=== PATIENT | female | born 1970 | race Two or more races ===

== ENCOUNTER 2018-04-28 13:27 | Emergency (ER) | payer BC ==
[2018-04-28] MEDS ORDERED: MECLIZINE 25 MG TAB PO STA (14:25)
[2018-04-28] MEDS ORDERED: DIAZEPAM 5 MG/ML 2 ML INJ IVP STA (14:25)
--- NOTE | 2018-04-28 14:28 | ED ---
General Adult HPI - General Chief complaint: Recheck/Abnormal Lab/Rx Stated complaint: High BP Time Seen by Provider: 04/28/18 13:50 Source: patient, RN notes reviewed Mode of arrival: wheelchair Limitations: no limitations - History of Present Illness Initial comments: This is a 47-year-old female who presents emergency Department complaining that her head doesn't feel right today. Patient states she does have a history of vertigo and high blood pressure. patient also has a history of Crohn's. Patient states when she woke up with a pretty significant headache which lasted about 15 minutes to 30 minutes. Patient states she was very hot at that time. Patient states she had a doctor's appointment so she decided to go to that. Patient states when she left the doctor's appointment she felt like everything was moving slowly around her and she didn't feel comfortable driving so she went home and took her blood pressure at which point time it was 180 something over 102. Patient states it kind of feels like her vertigo except that it's more constant and even when she is not moving. Patient denies any headache at this point. Patient denies any chest pain today patient denies any palpitations. Patient denies shortness of breath or difficulty breathing. Patient denies any recent fever chills or cough. Patient denies any numbness or weakness. Patient states she feels a little bit off balance but has not fallen. - Related Data Home Medications Medication Instructions Recorded Confirmed Brimonidine Tartrate [Alphagan P 1 drops BOTH EYES DAILY 06/02/16 04/28/18 0.2% Ophth Soln] Cetirizine HCl [Zyrtec] 10 mg PO DAILY 06/02/16 04/28/18 Cranberry Fruit Extract [Cranberry] 500 mg PO DAILY 06/02/16 04/28/18 Hydrochlorothiazide 12.5 mg PO DAILY 06/02/16 04/28/18 Losartan [Cozaar] 50 mg PO BID 06/02/16 04/28/18 Mesalamine [Lialda] 2.4 gm PO DAILY 06/02/16 04/28/18 Omeprazole 20 mg PO DAILY 06/02/16 04/28/18 Sodium Chloride 5% Ophth Soln 1 drops BOTH EYES BID 06/02/16 04/28/18 [Link 128] Albuterol Inhaler [Ventolin Hfa 2 puff INHALATION RT-Q6H PRN 04/28/18 04/28/18 Inhaler] Docusate [Colace] 200 mg PO HS 04/28/18 04/28/18 Multivitamins, Thera [Multivitamin 1 tab PO DAILY 04/28/18 04/28/18 (formulary)] [place]-3 Fatty Acids/Fish Oil [Fish 1 cap PO DAILY 04/28/18 04/28/18 Oil 1,000 mg Softgel] Polyethylene Glycol 3350 [Miralax] 5 ml PO DAILY 04/28/18 04/28/18 Saccharomyces Cerevisiae [Smith's 2,000 mg PO DAILY 04/28/18 04/28/18 Yeast] Turmeric Root Extract [Turmeric] 1,000 mg PO DAILY 04/28/18 04/28/18 Venlafaxine HCl [Effexor XR] 150 mg PO DAILY 04/28/18 04/28/18 Allergies Allergy/AdvReac Type Severity Reaction Status Date / Time Iodinated Contrast- Oral and Allergy Swelling Verified 04/28/18 14:37 IV Dye [Iodinated Contrast Media - IV Dye] Sulfa (Sulfonamide AdvReac Unknown Verified 04/28/18 14:37 Antibiotics) Review of Systems ROS Statement: Those systems with pertinent positive or pertinent negative responses have been documented in the HPI. ROS Other: All systems not noted in ROS Statement are negative. Past Medical History Past Medical History: Asthma, Eye Disorder, Hypertension, Osteoarthritis (OA), Skin Disorder Additional Past Medical History / Comment(s): Hx Fuch's Dystrophy, eczema, Chron's, borderline hyperlipidema History of Any Multi-Drug Resistant Organisms: None Reported Past Surgical History: Appendectomy, Bowel Resection, Hysterectomy Additional Past Surgical History / Comment(s): Fatty tumors removed from right arm, right leg,gland removed from neck, colonoscopy, EGD. Past Anesthesia/Blood Transfusion Reactions: Motion Sickness Past Psychological History: No Psychological Hx Reported Smoking Status: Former smoker Past Alcohol Use History: Occasional Past Drug Use History: None Reported - Past Family History Mother Family Medical History: Blood Disorder Brother(s) Family Medical History: Blood Disorder General Exam - General Exam Comments Initial Comments: GENERAL: Patient is well-developed and well-nourished. Patient is nontoxic and well- hydrated and is in mild distress . ENT: Neck is soft and supple. No significant lymphadenopathy is noted. Oropharynx is clear. Moist mucous membranes. Neck has full range of motion without eliciting any pain. EYES: The sclera were anicteric and conjunctiva were pink and moist. Extraocular movements were intact and pupils were equal round and reactive to light. Eyelids were unremarkable. PULMONARY: Unlabored respirations. Good breath sounds bilaterally. No audible rales rhonchi or wheezing was noted. CARDIOVASCULAR: There is a regular rate and rhythm without any murmurs gallops or rubs. ABDOMEN: Soft and nontender with normal bowel sounds. No palpable organomegaly was noted. There is no palpable pulsatile mass. SKIN: Skin is clear with no lesions or rashes and otherwise unremarkable. NEUROLOGIC: Patient is alert and oriented x3. Cranial nerves II through XII are grossly intact. Motor and sensory are also intact. Normal speech, volume and content. Symmetrical smile. MUSCULOSKELETAL: Normal extremities with adequate strength and full range of motion. No lower extremity swelling or edema. No calf tenderness. LYMPHATICS: No significant lymphadenopathy is noted PSYCHIATRIC: Normal psychiatric evaluation. Normal interpersonal interactions appears functionally intact in deals appropriately with others. No signs of depression. No signs of anxiety. Limitations: no limitations Course Vital Signs 04/28/18 04/28/18 04/28/18 13:46 15:00 15:54 Temperature 98.8 F Pulse Rate 74 71 71 Respiratory 18 18 18 Rate Blood Pressure 175/98 182/99 168/86 O2 Sat by Pulse 99 96 98 Oximetry 04/28/18 04/28/18 04/28/18 16:09 16:45 17:15 Temperature Pulse Rate 73 75 76 Respiratory 20 18 20 Rate Blood Pressure 168/96 167/85 161/79 O2 Sat by Pulse 99 99 Oximetry Medical Decision Making - Medical Decision Making EKG shows normal sinus rhythm at 67 bpm CO interval is 162 QRS is 90 QT interval 418 QTC is 441. Patient's EKG shows no ST segment elevation or depression or T wave abnormalities are noted CT of brain showed no acute abnormality. Chest x-ray showed no acute abnormality Patient had Valium and Antivert and felt considerably better after that. Patient also received hydralazine 2 for the blood pressure. - Lab Data Result diagrams: 04/28/18 14:50 04/28/18 14:50 Lab Results 10/11/1004/28/18 04/28/18 Range/Units 14:50 14:50 14:50 WBC 9.3 (3.8-10.6) k/uL RBC 5.07 (3.80-5.40) m/uL Hgb 15.0 (11.4-16.0) gm/dL Hct 45.7 (34.0-46.0) % MCV 90.3 (80.0-100.0) fL MCH 29.5 (25.0-35.0) pg MCHC 32.7 (31.0-37.0) g/dL RDW 13.8 (11.5-15.5) % Plt Count 289 (150-450) k/uL Neutrophils % 76 % Lymphocytes % 17 % Monocytes % 4 % Eosinophils % 2 % Basophils % 0 % Neutrophils # 7.1 (1.3-7.7) k/uL Lymphocytes # 1.6 (1.0-4.8) k/uL Monocytes # 0.4 (0-1.0) k/uL Eosinophils # 0.2 (0-0.7) k/uL Basophils # 0.0 (0-0.2) k/uL PT (9.0-12.0) sec INR (<1.2) APTT (22.0-30.0) sec Sodium 140 (137-145) mmol/L Potassium 4.6 (3.5-5.1) mmol/L Chloride 106 (98-107) mmol/L Carbon Dioxide 23 (22-30) mmol/L Anion Gap 11 mmol/L BUN 15 (7-17) mg/dL Creatinine 0.84 (0.52-1.04) mg/dL Est GFR (CKD-EPI)AfAm >90 (>60 ml/min/1.73 sqM) Est GFR (CKD-EPI)NonAf 83 (>60 ml/min/1.73 sqM) Glucose 96 (74-99) mg/dL Calcium 9.9 (8.4-10.2) mg/dL Magnesium 2.1 (1.6-2.3) mg/dL Total Bilirubin 0.7 (0.2-1.3) mg/dL AST 57 H (14-36) U/L ALT 34 (9-52) U/L Alkaline Phosphatase 75 (38-126) U/L Total Creatine Kinase 328 H (30-135) U/L CK-MB (CK-2) 1.8 (0.0-2.4) ng/mL CK-MB (CK-2) Rel Index 0.5 Troponin I <0.012 (0.000-0.034) ng/mL Total Protein 8.3 H (6.3-8.2) g/dL Albumin 4.6 (3.5-5.0) g/dL 04/28/18 Range/Units 14:50 WBC (3.8-10.6) k/uL RBC (3.80-5.40) m/uL Hgb (11.4-16.0) gm/dL Hct (34.0-46.0) % MCV (80.0-100.0) fL MCH (25.0-35.0) pg MCHC (31.0-37.0) g/dL RDW (11.5-15.5) % Plt Count (150-450) k/uL Neutrophils % % Lymphocytes % % Monocytes % % Eosinophils % % Basophils % % Neutrophils # (1.3-7.7) k/uL Lymphocytes # (1.0-4.8) k/uL Monocytes # (0-1.0) k/uL Eosinophils # (0-0.7) k/uL Basophils # (0-0.2) k/uL PT 10.1 (9.0-12.0) sec INR 1.0 (<1.2) APTT 25.0 (22.0-30.0) sec Sodium (137-145) mmol/L Potassium (3.5-5.1) mmol/L Chloride (98-107) mmol/L Carbon Dioxide (22-30) mmol/L Anion Gap mmol/L BUN (7-17) mg/dL Creatinine (0.52-1.04) mg/dL Est GFR (CKD-EPI)AfAm (>60 ml/min/1.73 sqM) Est GFR (CKD-EPI)NonAf (>60 ml/min/1.73 sqM) Glucose (74-99) mg/dL Calcium (8.4-10.2) mg/dL Magnesium (1.6-2.3) mg/dL Total Bilirubin (0.2-1.3) mg/dL AST (14-36) U/L ALT (9-52) U/L Alkaline Phosphatase (38-126) U/L Total Creatine Kinase (30-135) U/L CK-MB (CK-2) (0.0-2.4) ng/mL CK-MB (CK-2) Rel Index Troponin I (0.000-0.034) ng/mL Total Protein (6.3-8.2) g/dL Albumin (3.5-5.0) g/dL Disposition Clinical Impression: Vertigo, Hypertension Disposition: HOME SELF-CARE Condition: Good Instructions: Vertigo (ED), Hypertension (ED) Additional Instructions: Patient should increased eyetooth hydrochlorothiazide to 25 twice a day Is patient prescribed a controlled substance at d/c from ED?: No Referrals: Rena Cowan MD [Primary Care Provider] - 1-2 days Time of Disposition: 17:28
[2018-04-28 15:12] LABS: Basophils % (A) 0 %; Eosinophils # (A) 0.2 k/uL (0-0.7); Eosinophils % (A) 2 %; HCT 45.7 % (34.0-46.0); Lymphocytes # (A) 1.6 k/uL (1.0-4.8); Lymphocytes % (A) 17 %; MCH 29.5 pg (25.0-35.0); MCHC 32.7 g/dL (31.0-37.0); MCV 90.3 fL (80.0-100.0); Mean Platelet Volume 7.2; Monocytes # (A) 0.4 k/uL (0-1.0); Monocytes % (A) 4 %; Neutrophils # (A) 7.1 k/uL (1.3-7.7); Neutrophils % (A) 76 %; Platelet Count 289 k/uL (150-450); RBC 5.07 m/uL (3.80-5.40); RDW 13.8 % (11.5-15.5); WBC 9.3 k/uL (3.8-10.6)
[2018-04-28 15:19] LABS: Prothrombin Time 10.1 sec (9.0-12.0)
[2018-04-28 15:20] LABS: ALT 34 U/L (9-52); AST 57 U/L (14-36); Albumin 4.6 g/dL (3.5-5.0); Alkaline Phosphatase 75 U/L (38-126); Anion Gap 11 mmol/L; Blood Urea Nitrogen 15 mg/dL (7-17); Calcium 9.9 mg/dL (8.4-10.2); Carbon Dioxide 23 mmol/L (22-30); Chloride 106 mmol/L (98-107); Glucose 96 mg/dL (74-99); Magnesium 2.1 mg/dL (1.6-2.3); Potassium 4.6 mmol/L (3.5-5.1); Sodium 140 mmol/L (137-145); Total Bilirubin 0.7 mg/dL (0.2-1.3); Total Protein 8.3 g/dL (6.3-8.2)
[2018-04-28 15:33] LABS: Creatine Kinase 328 U/L (30-135)
[2018-04-28 15:46] LABS: Troponin I <0.012 ng/mL (0.000-0.034)
[2018-04-28] MEDS ORDERED: hydrALAZINE HCL 20 MG/ML 1 ML VIAL IVP STA ×2 (15:53→16:48)
--- NOTE | 2018-04-28 15:57 | XR ---
EXAMINATION TYPE: XR chest 2V DATE OF EXAM: 04/28/2018 COMPARISON: None INDICATION: Chest pain headache TECHNIQUE: Frontal and lateral views of the chest are obtained. FINDINGS: The heart size is normal. The pulmonary vasculature is normal. The lungs are clear. IMPRESSION: 1. No acute pulmonary process.
[2018-04-28 16:03] LABS: Creatine Kinase MB 1.8 ng/mL (0.0-2.4)
--- NOTE | 2018-04-28 16:06 | CT ---
EXAMINATION TYPE: CT brain wo con DATE OF EXAM: 04/28/2018 COMPARISON: None HISTORY: Hypertension with dizziness and TALBOT CT DLP: 931.8 mGycm. Automated Exposure Control for Dose Reduction was Utilized. TECHNIQUE: CT scan of the head is performed without contrast. FINDINGS: There is no acute intracranial hemorrhage, mass effect, or midline shift identified. The ventricles and sulci are within normal limits in size. The globes are intact and the visualized sin uses are clear. Inflammatory change present in the mastoid air cells on the left. IMPRESSION: No acute intracranial hemorrhage, mass effect, or midline shift is seen. Mastoid inflamm atory change on the left. Correlate for mastoiditis.
[2018-04-28] MEDS ORDERED: ENALAPRILAT 1.25 MG/ML 1 ML VIAL IVP STA (17:18)
[2018-04-28] MEDS ORDERED: SODIUM CHLORIDE 0.9% 500 ML IV ONE (17:32)
[2018-04-28 17:55] VITALS: RESP 18
[2018-04-28 18:23] VITALS: BP 123/62; PULSE 86; TEMP 97.8
== END 2018-04-28 18:22 | disposition home or self-care (01) ==
LOC: EC 13:27
DX: I10 Essential (primary) hypertension (principal); R42 Dizziness and giddiness; J45.909 Unspecified asthma, uncomplicated; Z87.891 Personal history of nicotine dependence; Z79.899 Other long term (current) drug therapy; Z91.041 Radiographic dye allergy status; Z88.2 Allergy status to sulfonamides
CPT/HCPCS: 36415; 93005; 80053; 82550; 82553; 83735; 84484; 85025; 85610; 85730; 71046; 70450; 99284; 96374; 96375; 96376; J0360; J3360

== ENCOUNTER → 2018-06-08 | Outpatient (CLI) | payer BC ==
--- NOTE | 2018-06-08 10:35 | MR ---
EXAMINATION TYPE: MR iac wo/w con DATE OF EXAM: 06/08/2018 COMPARISON: 04/28/2018 HISTORY: Subperiosteal abscess of mastoid, left ear TECHNIQUE: Multiplanar, multisequence images of the brain and brainstem is performed without and with IV contras t, utilizing 7.5 mL intravenous Gadavist . FINDINGS: Diffusion weighted images demonstrate no evidence of a recent infarct or other diffusion ab normality. There is no extra-axial fluid collection. Few punctate T2/FLAIR hyperintense foci are see n within the subcortical and periventricular white matter. The ventricular system and cisternal space s are normal in size and appearance. The brain volume is age appropriate. Midline structures demonstrate normal morphology. Partially empty sella turcica is incidentally note d. The craniocervical junction appears within normal limits. The dural venous sinuses appear patent. There is undulation of the optic nerves. Globes appear symmetric and unremarkable. Lenses are in plac e. Extraocular muscles are symmetric. There is mild mucosal thickening within the ethmoid sinuses. The remaining visualized paranasal sinus es and right mastoid air cells are well aerated. On the left there is T2 hyperintense and T1 predomin antly hypointense opacification. Few areas of mild hyperintensity may represent hemorrhagic/proteinac eous debris or mild enhancement although no precontrast images in the axial plane are obtained. There is mild restricted diffusion. Opacification is limited to the mastoid air cells with extension towar ds the petrous apex. No osseous erosion or extent into the extra-axial or intracranial space are seen . No distinct left middle ear cavity fluid is identified. No abnormal enhancement of the 7th or 8th c ranial nerves. Cerebellar pontine angle is unremarkable. IMPRESSION: 1. Findings suggest acute uncomplicated left mastoiditis without evidence of adjacent abscess, osseou s erosion or otomastoiditis. 2. Mild burden nonspecific white matter change, most commonly on the basis of chronic microangiopathy given the distribution and morphology. 3. Undulation of the optic nerves is also nonspecific but can be seen in intracranial hypertension. C orrelate with ophthalmic exam to exclude papilledema.
--- NOTE | 2018-06-27 21:14 | ENG ---
ELECTRONYSTAGMOGRAM REPORT ATTENDING PHYSICIAN: Dr. Azam Victor. DATE OF SERVICE: 06/08/18. VIDEO ELECTRONYSTAGMOGRAPHIC REPORT: AGE: 47 ENG INDICATIONS: 47-year-old female with dizziness and vertigo beginning about 10 years ago. Currently intermittent, lasting 2-5 minutes at a time, maybe 1 per month. Dizziness can be precipitated by turning the head right, bending over or head down position, moving the head or when driving in the car. No reported hearing loss and no tendinitis. Fullness in the left ear. VNG FINDINGS: SPONTANEOUS NYSTAGMUS: SACCADES: Saccades shows intact peak velocities accuracy is and latencies. GAZE TEST: Gaze with fixation shows no nystagmus in any of the directions of gaze including centrally with vision denied. SINUSOIDAL TRACKING: Tracking is smooth with no break-ups. OKN TEST: Optokinetic nystagmus shows borderline asymmetry of faster speeds and unremarkable slower speeds. [place]-HALLPIKE TEST: [place]-Hallpike maneuvers are negative bilaterally. POSITION TEST: Static position testing in 6 different positions with eyes open and then with Frenzel goggles preventing fixation is negative for any nystagmus. CALORIC TEST: Caloric testing shows bilateral caloric weakness. IMPRESSIONS: Bilateral caloric weakness is suggested by a weak caloric responses bilaterally. Another test, such as head thrust test or if available active and passive rotation testing is required to confirm presence of bilateral vestibular dysfunction. There is no nystagmus encountered during the record and no evidence for vestibular or central nervous system features. MMODL / IJN: [id number] /
== END ==
LOC: NEUROMAIN 06:52
PROVIDERS: ATTEND Otolaryngology
DX: R42 Dizziness and giddiness (principal); H70.012 Subperiosteal abscess of mastoid, left ear; H92.02 Otalgia, left ear
CPT/HCPCS: 92540; 92537; 82565; 70553; 36415; A9585

== ENCOUNTER 2023-10-29 07:39 | Day surgery (SDC) | payer BC ==
[2023-10-29] MEDS: LACTATED RINGERS 1,000 ML IV ONE ×2 (07:53→08:31)
[2023-10-29] MEDS ORDERED: LACTATED RINGERS 1,000 ML IV SCH (07:59)
[2023-10-29] MEDS ORDERED: LIDOCAINE 1% (10MG/ML) FOR IV START INTRADERMA PRN (07:59)
[2023-10-29] MEDS ORDERED: PROPOFOL 10 MG/ML 20 ML VIAL IV ONE (08:35)
[2023-10-29 08:36] VITALS: TEMP 98.1
--- NOTE | 2023-10-29 08:51 | P.PCN ---
Date of Procedure: 10/29/23 Procedure(s) Performed: BRIEF HISTORY: Patient is a 52-year-old pleasant White female scheduled for an elective colonoscopy as a part of Evaluation of long-standing history of Crohn's colitis Diagnosis a 10.She is status post right colon resection in 2008 for ascending colon stricture.. PROCEDURE PERFORMED: Colonoscopy with biopsy. PREOPERATIVE DIAGNOSIS: Long-standing history of Crohn's colitis IV sedation per Anesthesia. PROCEDURE: After informed consent was obtained, the patient, was brought into the endoscopy unit. IV sedation was administered by Anesthesia under continuous monitoring. Digital rectal examination was normal. Initially the Olympus CF-160 flexible video colonoscope was then inserted in the rectum, gradually advanced into theRight colon without any difficulty. Careful examination was performed as the scope was gradually being withdrawn. The ileocolic anastomosis appeared widely patent but at the anastomosis there were scattered erosions identified. The distal ileum appeared normal. Mucosa of the transverse colon, descending colon, sigmoid colon, and rectum appeared normal. Random biopsies were done from the transverse colon to the rectum at every 10 cm intervel.Retroflexion was performed in the rectum and no lesions were seen. The patient tolerated the procedure well. IMPRESSION: Normal-appearing colon from rectum to The right colon with scattered erosions at theWidely patent anastomosisStatus post biopsies RECOMMENDATIONS: Findings of this examination were discussed with the patient as well as his family. She was advised to follow with the biopsy results. Recommend repeat colonoscopy in 5 years..
[2023-10-29 09:20] VITALS: BP 138/78; PULSE 78
[2023-10-29 09:21] VITALS: RESP 18
== END 2023-10-29 09:41 | disposition home or self-care (01) ==
LOC: ORWHC2ENDO 07:39
PROVIDERS: ATTEND Internal Medicine Gastroenterology
DX: K50.90 Crohn's disease, unspecified, without complications (principal); Z90.49 Acquired absence of other specified parts of digestive tract; I10 Essential (primary) hypertension; E78.5 Hyperlipidemia, unspecified; J45.909 Unspecified asthma, uncomplicated; K21.9 Gastro-esophageal reflux disease without esophagitis; F41.8 Other specified anxiety disorders; Z88.2 Allergy status to sulfonamides; Z91.041 Radiographic dye allergy status; Z79.899 Other long term (current) drug therapy; Z87.891 Personal history of nicotine dependence
CPT/HCPCS: 88305; 45380; J2704